=== PATIENT | male | born 1960 | race Hispanic/Latino ===

== ENCOUNTER 2019-01-10 22:13 | Emergency (ER) | payer MEDICARE, OTHER ==
[2019-01-10 23:19] VITALS: BP 149/102
[2019-01-10 23:54] LABS: Basophils % (Auto) 0.6 % (0.0-1.8); Eosinophils # (Auto) 0.1 K/mm3 (0.0-0.4); Eosinophils % (Auto) 1.2 % (0.0-4.3); Lymphocytes # (Auto) 0.9 K/mm3 (1.2-5.4); Lymphocytes % (Auto) 13.6 % (13.4-35.0); Mean Corpuscular HGB Conc 36 % (32-34); Mean Corpuscular Volume 91 fl (84-94); Monocytes # (Auto) 0.9 K/mm3 (0.0-0.8); Monocytes % (Auto) 13.1 % (0.0-7.3); Platelet Count 259 K/mm3 (140-440); Red Blood Count 5.16 M/mm3 (3.65-5.03); Red Cell Distribution Width 14.6 % (13.2-15.2)
[2019-01-11 00:06] LABS: Hemoglobin 16.9 gm/dl (11.8-15.2)
[2019-01-11 00:10] LABS: BUN/Creatinine Ratio 19; Blood Urea Nitrogen 21 mg/dL (9-20); Calcium 9.8 mg/dL (8.4-10.2); Hemolysis Index 23
[2019-01-11] MEDS ORDERED: LIDOCAINE VISCOUS 2% PO ONE (02:05)
[2019-01-11] MEDS ORDERED: BANOPHEN PO ONE (02:05)
--- NOTE | 2019-01-11 02:06 | Emergency Department Report ---
Vomiting/Diarrhea - HPI Chief Complaint: Abdominal Pain Stated Complaint: ABD PAIN NVD WEAKNESS Time Seen by Provider: 01/11/19 01:36 Duration: 1 Day Nausea/Vomiting Severity: None Diarrhea Severity: Moderate Pain Location: Generalized Pain Severity: Moderate Symptoms: Yes Watery Diarrhea, Yes Able to Tolerate Fluids, Yes Recent Unusual Foods, No Bloody diarrhea, No Fever, No Recent Untreated Water, No Recent use of Antibiotics, No Family w/ Similar Symptoms, No Contacts w/ Similar Symptoms, No Rash, No Hematuria, No Recent URI Symptoms Other History: Patient is a 58-year-old male with a history of depression and anxiety controlled with medication who presents to the ED complaining of mild abdominal cramping with diarrhea that started earlier today after lunch. Patient states he had a piece of chicken increase from the hospital meat food. Patient states the diarrhea is watery and very liquidy. Patient's has had about 6-7 episodes of diarrhea since this afternoon. Patient denies fevers/chills/nausea vomiting/chest pains ED Review of Systems ROS: Stated complaint: ABD PAIN NVD WEAKNESS Other details as noted in HPI Comment: All other systems reviewed and negative ED Past Medical Hx - Past Medical History Previous Medical History?: Yes Hx Psychiatric Treatment: Yes (Depression) - Surgical History Past Surgical History?: Yes Additional Surgical History: Neck Surgery - Social History Smoking Status: Current Every Day Smoker Substance Use Type: None - Medications Home Medications: Home Medications Medication Instructions Recorded Confirmed Last Taken Type Loperamide [Imodium] 2 mg PO Q6HR #12 capsule 01/11/19 Unknown Rx Vomiting Diarrhea Exam - Exam General: Vital signs noted. No distress. Alert and acting appropriately. HEENT: Yes Moist Mucous Membranes, No Pharyngeal Erythema, No Pharyngeal Exudates, No Rhinorrhea, No Conjuctival Injection, No Frontal Tenderness, No Maxillary Tenderness Neck: No Adenopathy, No Rigidity Lungs: Yes Clear Lung Sounds, Yes Good Air Exchange, No Wheezes, No Stridor, No Cough, No Nasal Flaring, No Retractions, No Use of Accessory Muscles Heart exam: Regular: Yes, Murmur: No, Tachycardia: No Abdomen: Tenderness: No, Peritoneal Signs: No, Distention: No, Hyperactive Bowel sounds: No Skin exam: Rash: No, Edema: No, Normal turgor: Yes Neurologic: Alert and oriented, no deficits. Musculoskeletal: Unremarkable. ED Course Vital Signs 01/10/19 23:18 Temperature 97.5 F L Pulse Rate 109 H Respiratory 20 Rate Blood Pressure 149/102 O2 Sat by Pulse 94 Oximetry ED Medical Decision Making - Lab Data Result diagrams: 01/10/19 23:35 01/10/19 23:39 Laboratory Last Values WBC 6.7 K/mm3 (4.5-11.0) 01/10/19 23:35 RBC 5.16 M/mm3 (3.65-5.03) H 01/10/19 23:35 Hgb 16.9 gm/dl (11.8-15.2) H 01/10/19 23:35 Hct 47.0 % (35.5-45.6) H 01/10/19 23:35 MCV 91 fl (84-94) 01/10/19 23:35 MCH 33 pg (28-32) H 01/10/19 23:35 MCHC 36 % (32-34) H 01/10/19 23:35 RDW 14.6 % (13.2-15.2) 01/10/19 23:35 Plt Count 259 K/mm3 (140-440) 01/10/19 23:35 Lymph % (Auto) 13.6 % (13.4-35.0) 01/10/19 23:35 Williams % (Auto) 13.1 % (0.0-7.3) H 01/10/19 23:35 Eos % (Auto) 1.2 % (0.0-4.3) 01/10/19 23:35 Baso % (Auto) 0.6 % (0.0-1.8) 01/10/19 23:35 Lymph # 0.9 K/mm3 (1.2-5.4) L 01/10/19 23:35 Williams # 0.9 K/mm3 (0.0-0.8) H 01/10/19 23:35 Eos # 0.1 K/mm3 (0.0-0.4) 01/10/19 23:35 Baso # 0.0 K/mm3 (0.0-0.1) 01/10/19 23:35 Seg Neutrophils % 71.5 % (40.0-70.0) H 01/10/19 23:35 Seg Neutrophils # 4.8 K/mm3 (1.8-7.7) 01/10/19 23:35 Sodium 137 mmol/L (137-145) 01/10/19 23:39 Potassium 4.3 mmol/L (3.6-5.0) 01/10/19 23:39 Chloride 101.5 mmol/L (98-107) 01/10/19 23:39 Carbon Dioxide 22 mmol/L (22-30) 01/10/19 23:39 18 mmol/L 01/10/19 23:39 BUN 21 mg/dL (9-20) H 01/10/19 23:39 1.1 mg/dL (0.8-1.5) 01/10/19 23:39 Estimated GFR > 60 ml/min 01/10/19 23:39 19 % 01/10/19 23:39 Glucose 104 mg/dL (75-100) H 01/10/19 23:39 Calcium 9.8 mg/dL (8.4-10.2) 01/10/19 23:39 - Radiology Data Radiology results: report reviewed, image reviewed FINDINGS: Visualized lower thorax: No significant abnormality. There is discoid atelectasis at the lung bases. Liver: Normal size and attenuation. There are small cysts in the liver. Spleen: Normal size and attenuation. Gallbladder and biliary system: Normal. Pancreas: Normal. Adrenals: Normal. Kidneys: There are no kidney stones or ureteral stones. There is no hydronephrosis.. GI tract: There is no bowel obstruction, colitis or enteritis. The appendix is not identified. . Lymph nodes and mesentery: Normal. Vasculature: Normal.. Bladder: Normal. Reproductive organs: Normal. Peritoneum: There is no ascites or free air, abscess or adenopathy.. Musculoskeletal structures: No significant abnormality. Other: There are bilateral inguinal hernias containing fat only.. IMPRESSION: There are small cysts in the liver. There are no kidney stones or ureteral stones. There is no hydronephrosis.. There is no bowel obstruction, colitis or enteritis. The appendix is not identified. . There is no ascites or free air, abscess or adenopathy.. There are bilateral inguinal hernias containing fat only... This document is electronically signed by Jose Armstrong MD., January 11 2019 03:50:15 AM ET Transcribed By: CO Dictated By: JOSE ARMSTRONG MD Electronically Authenticated By: JOSE ARMSTRONG MD Signed Date/Time: 01/11/19 0352 - Medical Decision Making Is a 58-year old male presents with gastroenteritis with diarrhea CBC, BMP, ordered completed and within normal limits CT scan of the abdomen shows no acute abdomen Discussed findings with patient. Discussed with patient to replenish with Gatorade and vitamin water his electrolytes. This is a stable patient is in no acute distress. Patient sent instructions being given. Critical care attestation.: If time is entered above; I have spent that time in minutes in the direct care of this critically ill patient, excluding procedure time. ED Disposition Clinical Impression: Gastroenteritis Disposition: DC-01 TO HOME OR SELFCARE Is pt being admited?: No Does the pt Need Aspirin: No Condition: Stable Instructions: Traveler's Diarrhea (ED), Gastroenteritis (ED), Food Poisoning (ED) Additional Instructions: Make sure to follow up with the primary care physician as discussed. Take all your medications as you've been prescribed. If you have any worsening symptoms or develop new symptoms please return to ED immediately. Prescriptions: Loperamide [Imodium] 2 mg PO Q6HR #12 capsule Referrals: JAIME RILEY MD [Primary Care Provider] - 3-5 Days Forms: Work/School Release Form(ED) Time of Disposition: 03:14
[2019-01-11] MEDS ORDERED: BENTYL ONE (02:14)
[2019-01-11] MEDS: BENTYL PO ONE ×2 (02:16→02:54)
[2019-01-11] MEDS ORDERED: BENTYL PO ONE (03:00)
--- NOTE | 2019-01-11 03:52 | Cat Scan Report ---
PROCEDURE: CT ABDOMEN PELVIS WO CON TECHNIQUE: Computerized axial tomography of the abdomen and pelvis was performed without intravenous contrast. This study is performed without intravascular contrast material and its sensitivity for ab dominal and pelvic pathology, including neoplasms, inflammation, abscess, free fluid, thrombosis, art erial dissection and infarction, is reduced compared with a contrast enhanced study. CT DOSE LENGTH PRODUCT: mGycm HISTORY: abd pain/diarhea COMPARISONS: None . FINDINGS: Visualized lower thorax: No significant abnormality. There is discoid atelectasis at the lung bases. Liver: Normal size and attenuation. There are small cysts in the liver. Spleen: Normal size and attenuation. Gallbladder and biliary system: Normal. Pancreas: Normal. Adrenals: Normal. Kidneys: There are no kidney stones or ureteral stones. There is no hydronephrosis.. GI tract: There is no bowel obstruction, colitis or enteritis. The appendix is not identified. . Lymph nodes and mesentery: Normal. Vasculature: Normal.. Bladder: Normal. Reproductive organs: Normal. Peritoneum: There is no ascites or free air, abscess or adenopathy.. Musculoskeletal structures: No significant abnormality. Other: There are bilateral inguinal hernias containing fat only.. IMPRESSION: There are small cysts in the liver. There are no kidney stones or ureteral stones. There is no hydronephrosis.. There is no bowel obstruction, colitis or enteritis. The appendix is not identified. . There is no ascites or free air, abscess or adenopathy.. There are bilateral inguinal hernias containing fat only... This document is electronically signed by Brut Wright MD., January 11 2019 03:50:15 AM ET
== END 2019-01-11 03:15 | disposition home or self-care (01) ==
LOC: ED 22:13
DX: K52.9 Noninfective gastroenteritis and colitis, unspecified (principal); F17.200 Nicotine dependence, unspecified, uncomplicated
CPT/HCPCS: 36415; 74176; 80048; 85025; 99284; Q0163

== ENCOUNTER 2019-01-15 10:50 | Emergency (ER) | payer MEDICARE ==
[2019-01-15 10:59] VITALS: BP 116/77
[2019-01-15] MEDS ORDERED: NORCO 10/325 PO ONE (11:33)
[2019-01-15] MEDS ORDERED: ZOFRAN ODT PO ONE (11:33)
--- NOTE | 2019-01-15 11:38 | Emergency Department Report ---
ED General Adult HPI - General Chief complaint: Fall Stated complaint: LT KNEE PAIN Time Seen by Provider: 01/15/19 11:15 Source: patient Mode of arrival: Wheelchair Limitations: No Limitations - History of Present Illness Initial comments: Patient presents to the emergency department with the chief complaint left knee pain since Monday. The patient states that he slipped on a wet floor and has since had left knee pain. Patient has a history of a torn meniscus in the left knee with repair. Patient states it feels exactly the same as when he tore his meniscus in 2010. Patient denies hitting his head or any other injury. Patient also denies loss consciousness. -: Sudden Location: lower extremity Radiation: non-radiation Severity scale (0 -10): 8 Quality: sharp Consistency: constant Improves with: rest Worsens with: movement Associated Symptoms: denies other symptoms Treatments Prior to Arrival: none - Related Data Previous Rx's Medication Instructions Recorded Last Taken Type Loperamide [Imodium] 2 mg PO Q6HR #12 capsule 01/11/19 Unknown Rx Acetaminophen/Codeine [Tylenol 1 tab PO Q6H PRN #15 tab 01/15/19 Unknown Rx /Codeine # 3 tab] Allergies Allergy/AdvReac Type Severity Reaction Status Date / Time ketorolac [From Toradol] Allergy Hives Verified 01/10/19 23:32 ED Review of Systems ROS: Stated complaint: LT KNEE PAIN Other details as noted in HPI Comment: All other systems reviewed and negative Constitutional: denies: chills, fever Eyes: denies: eye pain, eye discharge, vision change ENT: denies: ear pain, throat pain Respiratory: denies: cough, shortness of breath, wheezing Cardiovascular: denies: chest pain, palpitations Endocrine: no symptoms reported Gastrointestinal: denies: abdominal pain, nausea, diarrhea Genitourinary: denies: urgency, dysuria Musculoskeletal: other (left knee pain). denies: back pain, joint swelling, arthralgia Skin: denies: rash, lesions Neurological: denies: headache, weakness, paresthesias Psychiatric: denies: anxiety, depression Hematological/Lymphatic: denies: easy bleeding, easy bruising ED Past Medical Hx - Past Medical History Previous Medical History?: No Hx Psychiatric Treatment: Yes (Depression) - Surgical History Past Surgical History?: Yes Additional Surgical History: Neck Surgery - Social History Smoking Status: Current Every Day Smoker Substance Use Type: None - Medications Home Medications: Home Medications Medication Instructions Recorded Confirmed Last Taken Type Loperamide [Imodium] 2 mg PO Q6HR #12 capsule 01/11/19 Unknown Rx Acetaminophen/Codeine [Tylenol 1 tab PO Q6H PRN #15 tab 01/15/19 Unknown Rx /Codeine # 3 tab] ED Physical Exam - General Limitations: No Limitations General appearance: alert, in no apparent distress - Head Head exam: Present: atraumatic, normocephalic - Eye Eye exam: Present: normal appearance, PERRL, EOMI - ENT ENT exam: Present: mucous membranes moist - Neck Neck exam: Present: normal inspection - Respiratory Respiratory exam: Present: normal lung sounds bilaterally. Absent: respiratory distress - Cardiovascular Cardiovascular Exam: Present: regular rate, normal rhythm. Absent: systolic murmur, diastolic murmur, rubs, gallop - Rectal Rectal exam: Present: deferred - Extremities Exam Extremities exam: Present: other (patient has limited range of motion of the left knee due to pain with tenderness to palpation on the lateral joint line) - Back Exam Back exam: Present: normal inspection - Neurological Exam Neurological exam: Present: alert, oriented X3 - Psychiatric Psychiatric exam: Present: normal affect, normal mood - Skin Skin exam: Present: warm, dry, intact, normal color. Absent: rash ED Course Vital Signs 01/15/19 10:56 Temperature 97.8 F Pulse Rate 103 H Respiratory 18 Rate Blood Pressure 116/77 [Left] O2 Sat by Pulse 94 Oximetry ED Medical Decision Making - Medical Decision Making Discussed results with the patient Critical care attestation.: If time is entered above; I have spent that time in minutes in the direct care of this critically ill patient, excluding procedure time. ED Disposition Clinical Impression: Knee pain Disposition: DC-01 TO HOME OR SELFCARE Is pt being admited?: No Does the pt Need Aspirin: No Condition: Stable Instructions: Knee Pain (ED) Additional Instructions: Return if worse Prescriptions: Acetaminophen/Codeine [Tylenol /Codeine # 3 tab] 1 tab PO Q6H PRN #15 tab PRN Reason: pain Referrals: LE[place] VITA DOUGLAS MD [Primary Care Provider] - 3-5 Days PILAR GRAY MD [Staff Physician] - 3-5 Days Time of Disposition: 13:14
--- NOTE | 2019-01-15 12:13 | XRay Report ---
LEFT KNEE, 3 views: History: Pain. Minimal tibial spine spurring and retropatellar spurring are identified. No evidence for fracture, bone lesion or large joint effusion. Normal bone mineralization. IMPRESSION: Minimal osteoarthritis.
== END 2019-01-15 13:52 | disposition home or self-care (01) ==
LOC: ED 10:50
DX: M25.562 Pain in left knee (principal); F32.9 Major depressive disorder, single episode, unspecified; F17.200 Nicotine dependence, unspecified, uncomplicated; Z79.899 Other long term (current) drug therapy; Z88.6 Allergy status to analgesic agent; W01.0XXA Fall on same level from slipping, tripping and stumbling without subsequent striking against object, initial encounter; Y93.89 Activity, other specified; Y92.89 Other specified places as the place of occurrence of the external cause; Y99.8 Other external cause status
CPT/HCPCS: 99283; Q0162

== ENCOUNTER 2019-01-20 20:19 | Inpatient (IN) | payer MEDICARE, OTHER ==
--- NOTE | 2019-01-20 20:44 | Event Note ---
ED Screening Note ED Screening Note: pt presents with frontal BARAHONA that began 4 days ago states has been having "passing out spells for 7 months" states has not passed out for 4 weeks states "MRI of his brain was ordered but did not have the money to get it done" +dizziness no fall or injury in the last 4 days no numbness, no unilateral weakness no PMHx no daily meds allergy: toradol states he a rash/nausea pt is inpatient at [facility] for SI with overdose attempt no SI currently no HI no hallucinations +smoker no ETOH This initial assessment/diagnostic orders/clinical plan/treatment(s) is/are subject to change based on patients health status, clinical progression and re- assessment by fellow clinical providers in the ED. Further treatment and workup at subsequent clinical providers discretion. Patient/guardian urged not to elope from the ED as their condition may be serious if not clinically assessed and managed. Initial orders include: CT head, labs, EKG, UA, UDS
[2019-01-20 21:23] LABS: Basophils % (Auto) 1.3 % (0.0-1.8); Eosinophils # (Auto) 0.1 K/mm3 (0.0-0.4); Eosinophils % (Auto) 2.7 % (0.0-4.3); Hematocrit 39.7 % (35.5-45.6); Hemoglobin 13.8 gm/dl (11.8-15.2); Lymphocytes # (Auto) 0.8 K/mm3 (1.2-5.4); Lymphocytes % (Auto) 21.7 % (13.4-35.0); Mean Corpuscular HGB Conc 35 % (32-34); Mean Corpuscular Volume 91 fl (84-94); Monocytes # (Auto) 0.3 K/mm3 (0.0-0.8); Monocytes % (Auto) 9.4 % (0.0-7.3); Platelet Count 276 K/mm3 (140-440); Red Blood Count 4.38 M/mm3 (3.65-5.03); Red Cell Distribution Width 14.8 % (13.2-15.2)
--- NOTE | 2019-01-20 21:35 | XRay Report ---
PROCEDURE: XR CHEST ROUTINE 2V TECHNIQUE: PA and lateral chest radiographs were obtained. HISTORY: low O2 sat COMPARISONS: None. FINDINGS: Heart: Normal. Mediastinum/Vessels: Normal. Lungs/Pleural space: Lungs are hyperinflated. There are no confluent infiltrates or mass lesions. Pl eural spaces are clear. Bony thorax: No acute osseous abnormality. IMPRESSION: COPD No acute pulmonary process. This document is electronically signed by Mike Vital MD., January 20 2019 09:33:11 PM ET
[2019-01-20 21:46] LABS: BUN/Creatinine Ratio 15; Blood Urea Nitrogen 15 mg/dL (9-20); Calcium 8.8 mg/dL (8.4-10.2); Hemolysis Index 5
--- NOTE | 2019-01-20 21:47 | Cat Scan Report ---
PROCEDURE: CT HEAD/BRAIN WO CON TECHNIQUE: Computerized tomography of the head was performed without contrast material. CT DOSE LENGTH PRODUCT: 920.5 mGycm HISTORY: BARAHONA, dizziness COMPARISONS: None . FINDINGS: Skull and scalp: Normal . Paranasal sinuses: A polypoid lesion measuring 3 cm x 2 cm is noted in the right maxillary sinus mos t likely representing mucous retention cyst. Mild degree mucosal thickening is noted involving left m axillary and ethmoid sinuses. . Ventricles and subarachnoid spaces: Normal . Cerebrum: No evidence of hemorrhage, acute infarction or mass . Cerebellum and brainstem: No evidence of hemorrhage, acute infarction or mass . Vasculature: Normal . Other: None . ASPECTS: 10 IMPRESSION: No acute intracranial abnormality Chronic sinusitis. This document is electronically signed by Mike Vital MD., January 20 2019 09:45:03 PM ET
[2019-01-20] MEDS ORDERED: DILAUDID IV ONE ×2 (22:04→23:54)
--- NOTE | 2019-01-20 22:05 | Emergency Department Report ---
ED General Adult HPI - General Chief complaint: Headache Stated complaint: HEAD PAIN Time Seen by Provider: 01/20/19 23:41 Source: patient, EMS Mode of arrival: Wheelchair Limitations: No Limitations - History of Present Illness Initial comments: Patient is a 58-year-old male presents emergency with multiple complaints. Patient is complaining of shortness of breath and dyspnea on exertion that started yesterday. Patient is also complaining of nonproductive cough. Patient also complaining of a severe headaches gone on for 3 days. Patient states he feels his brain is swelling in his head is going to explode. Patient states that he had a neck surgery 9 weeks ago for an anterior fusion. Patient denies chest pain. Patient states his pain is a 10 out of 10. Patient states his shortness of breath is worse with exertion and better with rest. Patient states his headache is better with rest and worse with exertion. Patient's complaining of multiple bouts of syncope over the past several months. Patient is also complaining of dizziness. -: Sudden Location: head Severity scale (0 -10): 10 Quality: stabbing Consistency: constant Associated Symptoms: diaphoresis, headaches, shortness of breath, weakness - Related Data Previous Rx's Medication Instructions Recorded Last Taken Type Loperamide [Imodium] 2 mg PO Q6HR #12 capsule 01/11/19 Unknown Rx Acetaminophen/Codeine [Tylenol 1 tab PO Q6H PRN #15 tab 01/15/19 Unknown Rx /Codeine # 3 tab] Allergies Allergy/AdvReac Type Severity Reaction Status Date / Time ketorolac [From Toradol] Allergy Hives Verified 01/10/19 23:32 ED Review of Systems ROS: Stated complaint: HEAD PAIN Other details as noted in HPI Constitutional: denies: chills, fever Eyes: denies: eye pain, eye discharge, vision change ENT: denies: ear pain, throat pain Respiratory: shortness of breath. denies: cough, wheezing Cardiovascular: denies: chest pain, palpitations Endocrine: no symptoms reported Gastrointestinal: denies: abdominal pain, nausea, diarrhea Genitourinary: denies: urgency, dysuria Musculoskeletal: denies: back pain, joint swelling, arthralgia Skin: denies: rash, lesions Neurological: headache, weakness. denies: paresthesias Psychiatric: denies: anxiety, depression Hematological/Lymphatic: denies: easy bleeding, easy bruising ED Past Medical Hx - Past Medical History Previous Medical History?: Yes Hx Psychiatric Treatment: Yes (Depression, Suicidal Attempts) - Surgical History Past Surgical History?: Yes Additional Surgical History: Neck Surgery, Tonsilectomy - Family History Family history: no significant - Social History Smoking Status: Current Every Day Smoker Substance Use Type: None - Medications Home Medications: Home Medications Medication Instructions Recorded Confirmed Last Taken Type Loperamide [Imodium] 2 mg PO Q6HR #12 capsule 01/11/19 Unknown Rx Acetaminophen/Codeine [Tylenol 1 tab PO Q6H PRN #15 tab 01/15/19 Unknown Rx /Codeine # 3 tab] ED Physical Exam - General Limitations: No Limitations General appearance: alert, in no apparent distress - Head Head exam: Present: atraumatic, normocephalic - Eye Eye exam: Present: normal appearance, PERRL Pupils: Present: normal accommodation - ENT ENT exam: Present: mucous membranes moist - Neck Neck exam: Present: normal inspection - Respiratory Respiratory exam: Present: normal lung sounds bilaterally. Absent: respiratory distress - Cardiovascular Cardiovascular Exam: Present: regular rate, normal rhythm. Absent: systolic murmur, diastolic murmur, rubs, gallop - GI/Abdominal GI/Abdominal exam: Present: soft, normal bowel sounds. Absent: distended, tenderness, guarding - Rectal Rectal exam: Present: deferred - Extremities Exam Extremities exam: Present: normal inspection - Back Exam Back exam: Present: normal inspection - Neurological Exam Neurological exam: Present: alert, oriented X3 - Psychiatric Psychiatric exam: Present: normal affect, normal mood - Skin Skin exam: Present: warm, dry, intact, normal color. Absent: rash ED Course Vital Signs 01/20/19 01/20/19 01/20/19 20:44 23:29 23:31 Temperature 97.7 F Pulse Rate 98 H 80 Respiratory 18 16 25 H Rate Blood Pressure 108/46 Blood Pressure 122/68 [Left] O2 Sat by Pulse 92 95 Oximetry - Reevaluation(s) Reevaluation #1: Initial evaluation done. Patient found to be hypoxic. Patient placed on environmental monitoring technician and placed on oxygen. On 3 L the patient is now 95%. Patient's O2 sat was 90% prior to oxygen. Patient given site Medrol for his headache and Dilaudid. 01/20/19 23:50 She is still complaining of shortness of breath and headache. Patient is now wheezing. Patient will be given DuoNeb. Patient's CTA was done 01/21/19 00:04 Discussed all results with patient. Patient will be admitted to the hospitalist service. Patient agrees to plan of care. 01/21/19 00:22 - Consultations Consultation #1: Hospitalist consulted for admission. Hospitalist to admit patient. Hospitalist to assume care patient. 01/21/19 00:22 ED Medical Decision Making - Lab Data Result diagrams: 01/20/19 20:56 01/20/19 20:56 - EKG Data -: EKG Interpreted by [facility] EKG shows normal: sinus rhythm, axis, intervals, QRS complexes, ST-T waves Rate: normal - Radiology Data Radiology results: report reviewed PROCEDURE: CT HEAD/BRAIN WO CON TECHNIQUE: Computerized tomography of the head was performed without contrast material. CT DOSE LENGTH PRODUCT: 920.5 mGycm HISTORY: BARAHONA, dizziness COMPARISONS: None . FINDINGS: Skull and scalp: Normal . Paranasal sinuses: A polypoid lesion measuring 3 cm x 2 cm is noted in the right maxillary sinus most likely representing mucous retention cyst. Mild degree mucosal thickening is noted involving left maxillary and ethmoid sinuses. . Ventricles and subarachnoid spaces: Normal . Cerebrum: No evidence of hemorrhage, acute infarction or mass . Cerebellum and brainstem: No evidence of hemorrhage, acute infarction or mass . Vasculature: Normal . Other: None . ASPECTS: 10 IMPRESSION: No acute intracranial abnormality Chronic sinusitis. PROCEDURE: CT ANGIO CHEST TECHNIQUE: Computerized tomographic angiography of the chest was performed after the IV injection of iodinated nonionic contrast including image processing. The image data was postprocessed using 2-dimensional multiplanar reformatted (MPR) and 3-dimensional (MIP and/or volume rendered) techniques. Automated exposure control, adjustment of mA and/or kV according to patient size, or iterative reconstruction dose optimization techniques were utilized. CT DOSE LENGTH PRODUCT: 831.4 mGycm HISTORY: elevated d-dimer COMPARISONS: None . FINDINGS: Heart and pericardium: Normal. Thoracic aorta: Normal. Pulmonary vasculature: Normal. Lymph nodes: No enlarged thoracic lymph nodes. Trachea: A small intratracheal lesion measuring 1.2 x 0.7 cm is noted most likely representing polyp versus secretion. Lungs: Normal. Pleural space: No effusion, thickening, or pneumothorax. Musculoskeletal structures: No significant abnormality. Upper abdominal structures: There are 2 well-defined cystic lesions in liver larger measuring 1.9 cm and the smaller measuring 1 cm which cannot be further evaluated. Left adrenal demonstrates a hypodense nodule measuring 1.5 cm consistent with a benign adenoma.. IMPRESSION: No evidence of pulmonary embolism. No acute pulmonary process An intratracheal lesion may represent a polyp versus secretion. Endoscopic evaluation may be recommended. Cystic lesions are noted in the liver which appears to be of benign nature. Left adrenal adenoma PROCEDURE: XR CHEST ROUTINE 2V TECHNIQUE: PA and lateral chest radiographs were obtained. HISTORY: low O2 sat COMPARISONS: None. FINDINGS: Heart: Normal. Mediastinum/Vessels: Normal. Lungs/Pleural space: Lungs are hyperinflated. There are no confluent infiltrates or mass lesions. Pleural spaces are clear. Bony thorax: No acute osseous abnormality. IMPRESSION: COPD No acute pulmonary process. - Medical Decision Making Patient is a 58-year-old male that presents emergency room with complaints of shortness of breath, headache, dyspnea on exertion, dizziness, syncope. Patient found to be hypoxic. Patient placed on oxygen. Patient found have an elevated d-dimer and due to shortness of breath and hypoxia, a CTA of the chest was done and is negative for PE. CT the head done for the headache and it was negative. Chest x-ray is negative except for COPD changes. While in the ER patient found to be hypoxic and then wheezing. Patient given DuoNeb's - Differential Diagnosis hypoxia. Shortness of breath. Dizziness. Syncope. headache Critical Care Time: Yes Critical care attestation.: If time is entered above; I have spent that time in minutes in the direct care of this critically ill patient, excluding procedure time. Critical Care Time: 45 minutes ED Disposition Clinical Impression: SOB (shortness of breath), Hypoxia, Dizziness, Wheeze Headache Qualifiers: Headache type: unspecified Headache chronicity pattern: acute headache Intractability: intractable Qualified Code(s): R51 - Headache Syncope Qualifiers: Syncope type: unspecified Qualified Code(s): R55 - Syncope and collapse Disposition: OP ADMIT IP TO THIS HOSP Is pt being admited?: Yes Does the pt Need Aspirin: No Condition: Critical Time of Disposition: 00:22
[2019-01-20] MEDS ORDERED: SOLU-Medrol IV ONE (22:12)
--- NOTE | 2019-01-20 23:57 | Cat Scan Report ---
PROCEDURE: CT ANGIO CHEST TECHNIQUE: Computerized tomographic angiography of the chest was performed after the IV injection of iodinated nonionic contrast including image processing. The image data was postprocessed using 2-di mensional multiplanar reformatted (MPR) and 3-dimensional (MIP and/or volume rendered) techniques. Au tomated exposure control, adjustment of mA and/or kV according to patient size, or iterative reconstr uction dose optimization techniques were utilized. CT DOSE LENGTH PRODUCT: 831.4 mGycm HISTORY: elevated d-dimer COMPARISONS: None . FINDINGS: Heart and pericardium: Normal. Thoracic aorta: Normal. Pulmonary vasculature: Normal. Lymph nodes: No enlarged thoracic lymph nodes. Trachea: A small intratracheal lesion measuring 1.2 x 0.7 cm is noted most likely representing polyp versus secretion. Lungs: Normal. Pleural space: No effusion, thickening, or pneumothorax. Musculoskeletal structures: No significant abnormality. Upper abdominal structures: There are 2 well-defined cystic lesions in liver larger measuring 1.9 cm and the smaller measuring 1 cm which cannot be further evaluated. Left adrenal demonstrates a hypode nse nodule measuring 1.5 cm consistent with a benign adenoma.. IMPRESSION: No evidence of pulmonary embolism. No acute pulmonary process An intratracheal lesion may represent a polyp versus secretion. Endoscopic evaluation may be recommen ded. Cystic lesions are noted in the liver which appears to be of benign nature. Left adrenal adenoma This document is electronically signed by Mike Vital MD., January 20 2019 11:54:19 PM ET
[2019-01-21] MEDS ORDERED: DUONEB *Not for PRN Use IH ONE (00:03)
[2019-01-21] MEDS ORDERED: ZOFRAN IV PRN (00:33)
[2019-01-21] MEDS ORDERED: SODIUM CHLORIDE FLUSH SYRINGE 10 ML IV PRN (00:33)
[2019-01-21] MEDS ORDERED: TYLENOL PO PRN (00:33)
[2019-01-21] MEDS ORDERED: PROVENTIL IH PRN (00:33)
--- NOTE | 2019-01-21 00:42 | History and Physical Report ---
<LUCIE GUAJARDO - Last Filed: 01/21/19 01:25> History of Present Illness Date of examination: 01/21/19 Date of admission: 01/21/2019 Chief complaint: Productive cough, shortness of breath, headache History of present illness: 58-year-old male with history of depression and suicidal attempts who is a resident at [place] that presents to [facility] ED with complaints of productive cough, SOB, and headache. Pt states that he was bitten by an "unknown" insect 4 days ago and has had an headache ever since. He describes his headache as "feeling like my brain is swelling in his head is going to explode". The headache is aggravated with coughing. He complains of shortness of breath, which is worst with exertion. Additionally pt complains of cough for the past several months. Initially his cough was non-productive but has no become productive with thick brown colored sputum. Patient states that he had a neck surgery 9 weeks ago for an anterior fusion. Pt was recently on 1012 at [place]. He recently lost his and grandchildren. Denies: Diaphoresis, nausea, vomiting, diarrhea, constipation, fever, hemoptysis, or SI/HI Past History Past Medical History: COPD, other (depression, suicidal attempts ) Past Surgical History: tonsillectomy, Other (neck fusion sx 9 weeks ago) Social history: smoking (current heavy smoker), other (1012 from [place]) Family history: no significant family history Medications and Allergies Allergies Allergy/AdvReac Type Severity Reaction Status Date / Time ketorolac [From Toradol] Allergy Hives Verified 01/10/19 23:32 shellfish Allergy Unknown Uncoded 01/21/19 16:34 Home Medications Medication Instructions Recorded Confirmed Last Taken Type ALBUTEROL Inhaler (OR & NICU) 2 puff IH QID PRN 30 Days #1 vial 01/24/19 Unknown Rx [ProAir HFA Inhaler] Budesonide/Formoterol Fumarate 10.2 gm IH BID 30 Days #1 vial 01/24/19 Unknown Rx [Symbicort 80-4.5 Mcg Inhaler] Butalb/Acetamin/Caff 50-325-40 1 tab PO Q4H PRN #7 tablet 01/24/19 Unknown Rx [Fioricet 50-325-40] Prednisone [predniSONE 5 mg (6-Day 5 mg PO .TAPER #1 tab.ds.pk 01/24/19 Unknown Rx Pack, 21 Tabs)] Sertraline [Zoloft] 50 mg PO QDAY #7 tablet 01/24/19 Unknown Rx traZODone [Desyrel] 50 mg PO QHS PRN #7 tablet 01/24/19 Unknown Rx Active Meds: Active Medications Acetaminophen (Tylenol) 650 mg PO Q4H PRN PRN Reason: Pain MILD(1-3)/Fever >100.5/BARAHONA Albuterol (Proventil) 2.5 mg IH Q3HRT PRN PRN Reason: Shortness Of Breath Albuterol/Ipratropium (Duoneb *Not For Prn Use*) 1 ampul IH Q6HRT [facility] Budesonide (Pulmicort) 0.5 mg IH Q12HRT [facility] Docusate Sodium (Colace) 100 mg PO BID [facility] Enoxaparin Sodium (Lovenox) 40 mg SUB-Q QDAY [facility] Ondansetron HCl (Zofran) 4 mg IV Q8H PRN PRN Reason: Nausea And Vomiting Oxycodone/Acetaminophen (Percocet 5/325) 1 tab PO Q6H PRN PRN Reason: Pain, Moderate (4-6) Sodium Chloride (Sodium Chloride Flush Syringe 10 Ml) 10 ml IV BID FAVIO Sodium Chloride (Sodium Chloride Flush Syringe 10 Ml) 10 ml IV PRN PRN PRN Reason: LINE FLUSH Review of Systems All systems: negative (reviewed and no additional remarkable complaints except as noted) Cardiovascular: shortness of breath Respiratory: cough with sputum (sick brown colored sputum), shortness of breath Neurological: weakness, headaches Exam - Physical Exam Narrative exam: Physical exam General appearance: Present: No acute distress, well-developed, adult male, alert and oriented 3 - EENT Eyes: Present: PERRL, EOM intact ENT: hearing intact, normal dentition - Neck Neck: Present: supple, normal ROM - Respiratory Respiratory effort: Non-labored Respiratory: bilateral: Faint scattered wheezing - Cardiovascular Heart rate: 85 (bpm) Rhythm: Sinus rhythm Heart Sounds: Present: S1 & S2. Absent: rub, click - Extremities Extremities: no ischemia, pulses intact, - Peripheral Assessment Peripheral Pulses: within normal limits - Abdominal General gastrointestinal: soft, non-tender, normal bowel sounds - Integumentary Integumentary: Present: warm, dry - Musculoskeletal Musculoskeletal: generalized weakness -Neurological Neurological: CN II-XII grossly intact - Psychiatric Psychiatric: cooperative - Constitutional Vitals: Temp Pulse Resp BP Pulse Ox 97.7 F 80 25 H 108/46 95 01/20/19 20:44 01/20/19 23:31 01/20/19 23:31 01/20/19 23:31 01/20/19 23:31 Results - Labs CBC & Chem 7: 01/20/19 20:56 01/20/19 20:56 Labs: Laboratory Last Values WBC 3.5 K/mm3 (4.5-11.0) L 01/20/19 20:56 RBC 4.38 M/mm3 (3.65-5.03) 01/20/19 20:56 Hgb 13.8 gm/dl (11.8-15.2) 01/20/19 20:56 Hct 39.7 % (35.5-45.6) 01/20/19 20:56 MCV 91 fl (84-94) 01/20/19 20:56 MCH 32 pg (28-32) 01/20/19 20:56 MCHC 35 % (32-34) H 01/20/19 20:56 RDW 14.8 % (13.2-15.2) 01/20/19 20:56 Plt Count 276 K/mm3 (140-440) 01/20/19 20:56 Lymph % (Auto) 21.7 % (13.4-35.0) 01/20/19 20:56 Harmon % (Auto) 9.4 % (0.0-7.3) H 01/20/19 20:56 Eos % (Auto) 2.7 % (0.0-4.3) 01/20/19 20:56 Baso % (Auto) 1.3 % (0.0-1.8) 01/20/19 20:56 Lymph # 0.8 K/mm3 (1.2-5.4) L 01/20/19 20:56 Harmon # 0.3 K/mm3 (0.0-0.8) 01/20/19 20:56 Eos # 0.1 K/mm3 (0.0-0.4) 01/20/19 20:56 Baso # 0.0 K/mm3 (0.0-0.1) 01/20/19 20:56 Seg Neutrophils % 64.9 % (40.0-70.0) 01/20/19 20:56 Seg Neutrophils # 2.3 K/mm3 (1.8-7.7) 01/20/19 20:56 ESR 30 mm/Hr (0-20) 01/20/19 20:56 935.67 ng/mlDDU (0-234) H 01/20/19 20:56 Sodium 137 mmol/L (137-145) 01/20/19 20:56 Potassium 4.6 mmol/L (3.6-5.0) 01/20/19 20:56 Chloride 99.5 mmol/L (98-107) 01/20/19 20:56 Carbon Dioxide 28 mmol/L (22-30) 01/20/19 20:56 14 mmol/L 01/20/19 20:56 BUN 15 mg/dL (9-20) 01/20/19 20:56 1.0 mg/dL (0.8-1.5) 01/20/19 20:56 Estimated GFR > 60 ml/min 01/20/19 20:56 15 % 01/20/19 20:56 Glucose 130 mg/dL (75-100) H 01/20/19 20:56 Calcium 8.8 mg/dL (8.4-10.2) 01/20/19 20:56 Phosphorus 4.30 mg/dL (2.5-4.5) 01/20/19 20:56 Magnesium 2.20 mg/dL (1.7-2.3) 01/20/19 20:56 < 0.010 ng/mL (0.00-0.029) 01/21/19 00:22 - Imaging and Cardiology EKG: image reviewed (sinus rhythm, 85 bpm) Chest x-ray: report reviewed (IMPRESSION: COPD . no acute cardiopulmonary conditions), image reviewed Imaging and Cardiology: CTA Chest: FINDINGS: Heart and pericardium: Normal. Thoracic aorta: Normal. Pulmonary vasculature: Normal. Lymph nodes: No enlarged thoracic lymph nodes. Trachea: A small intratracheal lesion measuring 1.2 x 0.7 cm is noted most likely representing polyp versus secretion. Lungs: Normal. Pleural space: No effusion, thickening, or pneumothorax. Musculoskeletal structures: No significant abnormality. Upper abdominal structures: There are 2 well-defined cystic lesions in liver larger measuring 1.9 cm and the smaller measuring 1 cm which cannot be further evaluated. Left adrenal demonstrates a hypodense nodule measuring 1.5 cm consistent with a benign adenoma.. IMPRESSION: No evidence of pulmonary embolism. No acute pulmonary process An intratracheal lesion may represent a polyp versus secretion. Endoscopic evaluation may be recommended. Cystic lesions are noted in the liver which appears to be of benign nature. Left adrenal adenoma CT Head: FINDINGS: Skull and scalp: Normal . Paranasal sinuses: A polypoid lesion measuring 3 cm x 2 cm is noted in the right maxillary sinus most likely representing mucous retention cyst. Mild degree mucosal thickening is noted involving left maxillary and ethmoid sinuses. . Ventricles and subarachnoid spaces: Normal . Cerebrum: No evidence of hemorrhage, acute infarction or mass . Cerebellum and brainstem: No evidence of hemorrhage, acute infarction or mass . Vasculature: Normal . Other: None . ASPECTS: 10 IMPRESSION: No acute intracranial abnormality Chronic sinusitis. Assessment and Plan Assessment and plan: 58-year-old male with history of depression and suicidal attempts who is a resident at [place] that presents to [facility] ED with complaints of productive cough, SOB, and headache. D dimer elevated at 935.67, CT angiogram chest negative for PE. CTH did not show any evidence of hemorrhage, acute infarction or mass. On auscultation scattered wheezing throughout. He had a saturation of 90% on room air. He was placed on 3 L nasal cannula with improvement in saturation to 95%. Bronchitis COPD- likely Elevated d-dimer Acute Headache Hypertension Depression Suicidal attempts 1013 Tobacco abuse Plan: Continue supportive care Scheduled DuoNebs and Pulmicort, albuterol when necessary Mucinex Solu-Medrol 40 mg every 8 hours Levaquin 500 milligrams every 24 hours Monitor oxygen saturation Continue supplemental oxygen and wean as tolerated Patient denies history of hypertension, elevation in BP likely due to headache. 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 Mental health consult pending Counseled for smoking cessation, refused nicotine patch DVT PPX on Lovenox Advance Directives: No VTE prophylaxis?: Chemical Plan of care discussed with patient/family: Yes <CLYDE BENJAMIN - Last Filed: 01/24/19 22:01> History of Present Illness Date of admission: 01/21/19 00:45 Medications and Allergies Active Meds: Active Medications Acetaminophen (Tylenol) 650 mg PO Q4H PRN PRN Reason: Pain MILD(1-3)/Fever >100.5/BARAHONA Albuterol (Proventil) 2.5 mg IH Q3HRT PRN PRN Reason: Shortness Of Breath Albuterol/Ipratropium (Duoneb *Not For Prn Use*) 1 ampul IH Q6HRT [facility] Last Admin: 01/21/19 02:38 Dose: 1 ampul Documented by: Budesonide (Pulmicort) 0.5 mg IH Q12HRT [facility] Docusate Sodium (Colace) 100 mg PO BID [facility]AVIO Enoxaparin Sodium (Lovenox) 40 mg SUB-Q QDAY [facility] Guaifenesin (Mucinex Er) 600 mg PO BID [facility] Hydralazine HCl (Apresoline) 10 mg IV Q4HR PRN PRN Reason: Blood Pressure Levofloxacin/Dextrose (Levaquin 500mg/100ml) 500 mg in 100 mls @ 100 mls/hr IV Q24HR [facility]; Protocol Methylprednisolone Sodium Succinate (Solu-Medrol) 40 mg IV Q8HR [facility] Last Admin: 01/21/19 06:28 Dose: 40 mg Documented by: Ondansetron HCl (Zofran) 4 mg IV Q8H PRN PRN Reason: Nausea And Vomiting Oxycodone/Acetaminophen (Percocet 5/325) 1 tab PO Q6H PRN PRN Reason: Pain, Moderate (4-6) Last Admin: 01/21/19 06:32 Dose: 1 tab Documented by: Sodium Chloride (Sodium Chloride Flush Syringe 10 Ml) 10 ml IV BID [facility]IO Sodium Chloride (Sodium Chloride Flush Syringe 10 Ml) 10 ml IV PRN PRN PRN Reason: LINE FLUSH Exam - Constitutional Vitals: Temp Pulse Resp BP Pulse Ox 97.5 F L 91 H 18 129/67 92 01/21/19 05:47 01/21/19 05:47 01/21/19 06:32 01/21/19 05:47 01/21/19 05:47 Results - Labs CBC & Chem 7: 01/22/19 08:12 01/22/19 08:12 Labs: Laboratory Last Values WBC 3.5 K/mm3 (4.5-11.0) L 01/20/19 20:56 RBC 4.38 M/mm3 (3.65-5.03) 01/20/19 20:56 Hgb 13.8 gm/dl (11.8-15.2) 01/20/19 20:56 Hct 39.7 % (35.5-45.6) 01/20/19 20:56 MCV 91 fl (84-94) 01/20/19 20:56 MCH 32 pg (28-32) 01/20/19 20:56 MCHC 35 % (32-34) H 01/20/19 20:56 RDW 14.8 % (13.2-15.2) 01/20/19 20:56 Plt Count 276 K/mm3 (140-440) 01/20/19 20:56 Lymph % (Auto) 21.7 % (13.4-35.0) 01/20/19 20:56 Harmon % (Auto) 9.4 % (0.0-7.3) H 01/20/19 20:56 Eos % (Auto) 2.7 % (0.0-4.3) 01/20/19 20:56 Baso % (Auto) 1.3 % (0.0-1.8) 01/20/19 20:56 Lymph # 0.8 K/mm3 (1.2-5.4) L 01/20/19 20:56 Harmon # 0.3 K/mm3 (0.0-0.8) 01/20/19 20:56 Eos # 0.1 K/mm3 (0.0-0.4) 01/20/19 20:56 Baso # 0.0 K/mm3 (0.0-0.1) 01/20/19 20:56 Seg Neutrophils % 64.9 % (40.0-70.0) 01/20/19 20:56 Seg Neutrophils # 2.3 K/mm3 (1.8-7.7) 01/20/19 20:56 ESR 30 mm/Hr (0-20) 01/20/19 20:56 935.67 ng/mlDDU (0-234) H 01/20/19 20:56 Sodium 137 mmol/L (137-145) 01/20/19 20:56 Potassium 4.6 mmol/L (3.6-5.0) 01/20/19 20:56 Chloride 99.5 mmol/L (98-107) 01/20/19 20:56 Carbon Dioxide 28 mmol/L (22-30) 01/20/19 20:56 14 mmol/L 01/20/19 20:56 BUN 15 mg/dL (9-20) 01/20/19 20:56 1.0 mg/dL (0.8-1.5) 01/20/19 20:56 Estimated GFR > 60 ml/min 01/20/19 20:56 15 % 01/20/19 20:56 Glucose 130 mg/dL (75-100) H 01/20/19 20:56 Calcium 8.8 mg/dL (8.4-10.2) 01/20/19 20:56 Phosphorus 4.30 mg/dL (2.5-4.5) 01/20/19 20:56 Magnesium 2.20 mg/dL (1.7-2.3) 01/20/19 20:56 < 0.010 ng/mL (0.00-0.029) 01/21/19 00:22 Assessment and Plan Assessment and plan: Patient seen and 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 58 year man old admitted foracute bronchitis with hypoxia. Agree with plan as stated above except d/c 1013, partient has been off 1013 for more than 4 days at [place], currently denies homicidal or suicidal ideation
[2019-01-21] MEDS ORDERED: APRESOLINE IV PRN (01:38)
[2019-01-21] MEDS: DUONEB *Not for PRN Use IH SCH ×4 (02:38→20:52)
[2019-01-21] MEDS: SOLU-Medrol IV SCH ×3 (06:28→22:16)
[2019-01-21] MEDS: PERCOCET 5/325 PO PRN ×3 (06:32→22:17)
[2019-01-21 07:22] LABS: Amphetamine Screen,Urine PRESUMPTIVE NEGATIVE; Benzodiazepines Screen,Urine PRESUMPTIVE NEGATIVE; Cocaine Screen,Urine PRESUMPTIVE NEGATIVE; Methadone Screen,Urine PRESUMPTIVE NEGATIVE; Opiate Screen,Urine PRESUMPTIVE NEGATIVE
[2019-01-21 07:52] LABS: Cannabinoid Screen,Urine PRESUMPTIVE NEGATIVE
[2019-01-21 08:26] LABS: Bilirubin,Urine NEG (Negative); Blood,Urine SM (Negative); Color,Urine Yellow (Yellow); Protein,Urine <15 mg/dL mg/dL (Negative); Urobilinogen,Urine < 2.0 mg/dL (<2.0)
[2019-01-21] MEDS: PULMICORT IH SCH ×2 (09:07→20:53)
[2019-01-21] MEDS: COLACE PO SCH ×2 (09:38→22:16)
[2019-01-21] MEDS: LEVAQUIN 500MG/100ML 500 MG/100 ML BAG IV SCH (09:38)
[2019-01-21] MEDS: MUCINEX ER PO SCH ×2 (09:38→22:16)
[2019-01-21] MEDS: LOVENOX SUB-Q SCH (09:39)
[2019-01-21] MEDS: SODIUM CHLORIDE FLUSH SYRINGE 10 ML IV SCH ×2 (09:39→22:19)
[2019-01-21] MEDS ORDERED: DILAUDID IV ONE (18:00)
--- NOTE | 2019-01-21 19:24 | Consultation ---
History of Present Illness Consult date: 01/21/19 Reason for consult: dyspnea, cough, COPD, other (Headache.) History of present illness: PULMONARY AND CRITICAL CARE CONSULTATION. DR.KAMALA GUAJARDO THANK YOU FOR ASKING US TO PARTICIPATE IN THE CARE OF THIS PATIENT. 58-year-old male with history of depression and suicidal attempts who is a resident at [place] that presents to [facility] ED with complaints of productive cough, SOB, and headache. Pt states that he was bitten by an "unknown" insect 4 days ago and has had an headache ever since. He describes his headache as "feeling like my brain is swelling in his head is going to explode". The headache is aggravated with coughing. He complains of shortness of breath, which is worst with exertion. Additionally pt complains of cough for the past several months. Initially his cough was non-productive but has no become productive with thick brown colored sputum. Patient states that he had a neck surgery 9 weeks ago for an anterior fusion. Pt was recently on 1012 at [place]. He recently lost his and grandchildren. Denies: Diaphoresis, nausea, vomiting, diarrhea, constipation, fever, hemoptysis. Patient complaining non productive cough and shortness of breath. Patient has heavy history of smoking 1 to 2 packs a day for 46 years. Says stopped smoking recently. Patient used to smoke Marijuana. Denies alcohol abuse. 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 Patient presently resting on 2 1/2 litres O2. O2 saturation 92%. Chest xray reported COPD. No acute pulmonary process. Past History Past Medical History: COPD, other (depression, suicidal attempts ) Past Surgical History: tonsillectomy, Other (neck fusion sx 9 weeks ago) Social history: smoking (current heavy smoker), other (1012 from [place]) Family history: no significant family history Medications and Allergies Allergies Allergy/AdvReac Type Severity Reaction Status Date / Time ketorolac [From Toradol] Allergy Hives Verified 01/10/19 23:32 shellfish Allergy Unknown Uncoded 01/21/19 16:34 Home Medications Medication Instructions Recorded Confirmed Last Taken Type Loperamide [Imodium] 2 mg PO Q6HR #12 capsule 01/11/19 01/21/19 Unknown Rx Acetaminophen/Codeine [Tylenol 1 tab PO Q6H PRN #15 tab 01/15/19 01/21/19 Unknown Rx /Codeine # 3 tab] Active Meds: Active Medications Acetaminophen (Tylenol) 650 mg PO Q4H PRN PRN Reason: Pain MILD(1-3)/Fever >100.5/[place] Albuterol (Proventil) 2.5 mg IH Q3HRT PRN PRN Reason: Shortness Of Breath Albuterol/Ipratropium (Duoneb *Not For Prn Use*) 1 ampul IH Q6HRT [facility] Last Admin: 01/21/19 13:47 Dose: 1 ampul Documented by: Budesonide (Pulmicort) 0.5 mg IH Q12HRT [facility] Last Admin: 01/21/19 09:07 Dose: 0.5 mg Documented by: Docusate Sodium (Colace) 100 mg PO BID [facility] Last Admin: 01/21/19 09:38 Dose: 100 mg Documented by: Enoxaparin Sodium (Lovenox) 40 mg SUB-Q QDAY [facility] Last Admin: 01/21/19 09:39 Dose: 40 mg Documented by: Guaifenesin (Mucinex Er) 600 mg PO BID [facility] Last Admin: 01/21/19 09:38 Dose: 600 mg Documented by: Hydralazine HCl (Apresoline) 10 mg IV Q4HR PRN PRN Reason: Blood Pressure Levofloxacin/Dextrose (Levaquin 500mg/100ml) 500 mg in 100 mls @ 100 mls/hr IV Q24HR [facility]; Protocol Last Admin: 01/21/19 09:38 Dose: 100 mls/hr Documented by: Methylprednisolone Sodium Succinate (Solu-Medrol) 40 mg IV Q8HR [facility] Last Admin: 01/21/19 14:06 Dose: 40 mg Documented by: Ondansetron HCl (Zofran) 4 mg IV Q8H PRN PRN Reason: Nausea And Vomiting Oxycodone/Acetaminophen (Percocet 5/325) 1 tab PO Q6H PRN PRN Reason: Pain, Moderate (4-6) Last Admin: 01/21/19 14:06 Dose: 1 tab Documented by: Sodium Chloride (Sodium Chloride Flush Syringe 10 Ml) 10 ml IV BID [facility] Last Admin: 01/21/19 09:39 Dose: 10 ml Documented by: Sodium Chloride (Sodium Chloride Flush Syringe 10 Ml) 10 ml IV PRN PRN PRN Reason: LINE FLUSH Review of Systems All systems: negative Physical Examination Vital signs: Vital Signs Temp Pulse Resp BP Pulse Ox 97.7 F 98 H 18 122/68 92 01/20/19 20:44 01/20/19 20:44 01/20/19 20:44 01/20/19 20:44 01/20/19 20:44 General appearance: no acute distress, alert Eyes: non-icteric ENT: oropharynx moist Neck: supple, no JVD Ascultation: Bilateral: diminished breath sounds, other (Prolonged expiratory phase.) Cardiovascular: regular rate and rhythm Gastrointestinal: normoactive bowel sounds, soft, non-tender Integumentary: normal Extremities: no cyanosis, no edema Musculoskeletal: no deformities Gait: other (Patient resting in bed.) non-focal exam, pupils equal and round, CN II-XII normal depressed Results - Laboratory Findings CBC and BMP: 01/20/19 20:56 01/20/19 20:56 PT/INR, D-dimer 935.67 ng/mlDDU (0-234) H 01/20/19 20:56 Abnormal lab findings: Abnormal Labs 01/20/19 01/20/19 01/20/19 20:56 20:56 20:56 WBC 3.5 L MCHC 35 H [place] % (Auto) 9.4 H Lymph # 0.8 L D-Dimer 935.67 H Glucose 130 H - Diagnostic Findings Chest x-ray: report reviewed (COPD, No acute pulmonary process.), image reviewed CT scan - chest: report reviewed, image reviewed Additional studies: Angio CT of chest done on 01/20/19 FINDINGS: Heart and pericardium: Normal. Thoracic aorta: Normal. Pulmonary vasculature: Normal. Lymph nodes: No enlarged thoracic lymph nodes. Trachea: A small intratracheal lesion measuring 1.2 x 0.7 cm is noted most likely representing polyp versus secretion. Lungs: Normal. Pleural space: No effusion, thickening, or pneumothorax. Musculoskeletal structures: No significant abnormality. Upper abdominal structures: There are 2 well-defined cystic lesions in liver larger measuring 1.9 cm and the smaller measuring 1 cm which cannot be further evaluated. Left adrenal demonstrates a hypodense nodule measuring 1.5 cm consistent with a benign adenoma.. IMPRESSION: No evidence of pulmonary embolism. No acute pulmonary process An intratracheal lesion may represent a polyp versus secretion. Endoscopic evaluation may be recommended. Cystic lesions are noted in the liver which appears to be of benign nature. Left adrenal adenoma Assessment and Plan 8-year-old male with history of depression and suicidal attempts who is a resident at [place] that presents to [facility] ED with complaints of productive cough, SOB, and headache. Pt states that he was bitten by an "unknown" insect 4 days ago and has had an headache ever since. He describes his headache as "fee ling like my brain is swelling in his head is going to explode". The headache is aggravated with coughing. He complains of shortness of breath, which is worst with exertion. Additionally pt complains of cough for the past several months. Initially his cough was non-productive but has no become productive with thick brown colored sputum. Patient states that he had a neck surgery 9 weeks ago for an anterior fusion. Pt was recently on 1012 at [place]. He recently lost his and grandchildren. Denies: Diaphoresis, nausea, vomiting, diarrhea, constipation, fever, hemoptysis. Patient complaining non productive cough and shortness of breath. Patient has heavy history of smoking 1 to 2 packs a day for 46 years. Says stopped smoking recently. Patient used to smoke Marijuana. Denies alcohol abuse. 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 Patient presently resting on 2 1/2 litres O2. O2 saturation 92%. Chest xray reported COPD. No acute pulmonary process - Patient Problems (1) SOB (shortness of breath) Current Visit: Yes Status: Acute Plan to address problem: O2 3 litres via nasal canula. Albuterol/atrovent aerosol treatments q 6 hours. Continue I/V solumedrol Continue Levaquin. Continue S/C Lovenox. Recommend GI prophylaxis. (2) COPD (chronic obstructive pulmonary disease) Current Visit: Yes Status: Acute Plan to address problem: Possible COPD with heavy history of smoking. O2 3 litres via nasal canula. Albuterol/atrovent aerosol treatments q 6 hours. Continue I/V solumedrol Continue Levaquin. Continue S/C Lovenox. Recommend GI prophylaxis. PFTs as out patient. (3) Headache Current Visit: Yes Status: Acute Qualifiers: Headache type: unspecified Headache chronicity pattern: acute headache Intractability: intractable Qualified Code(s): R51 - Headache Plan to address problem: Management as per primary care. Patient is on Percocet. (4) Hypoxia Current Visit: Yes Status: Acute Plan to address problem: O2 supplementation 3 litres. (5) Multiple tracheobronchial mucus plugs Current Visit: Yes Status: Acute Plan to address problem: Could be mucus plug described in trachea. May consider bronchoscopy if that not clear.
[2019-01-22] MEDS ORDERED: BENADRYL PO PRN ×2 (01:25→14:13)
[2019-01-22] MEDS: DUONEB *Not for PRN Use IH SCH ×4 (02:28→20:23)
[2019-01-22] MEDS ORDERED: XANAX PO STA (03:17)
[2019-01-22] MEDS: SOLU-Medrol IV SCH ×2 (06:12→15:10)
[2019-01-22] MEDS: PERCOCET 5/325 PO PRN ×2 (06:21→13:35)
[2019-01-22] MEDS: PULMICORT IH SCH ×2 (09:34→20:23)
[2019-01-22 10:01] LABS: Hemoglobin 13.1 gm/dl (11.8-15.2); Mean Corpuscular HGB Conc 34 % (32-34); Mean Corpuscular Volume 91 fl (84-94); Platelet Count 345 K/mm3 (140-440); Red Blood Count 4.28 M/mm3 (3.65-5.03); Red Cell Distribution Width 14.6 % (13.2-15.2)
[2019-01-22] MEDS: COLACE PO SCH (10:24)
[2019-01-22] MEDS: MUCINEX ER PO SCH (10:25)
[2019-01-22] MEDS: LOVENOX SUB-Q SCH (10:25)
[2019-01-22] MEDS: LEVAQUIN 500MG/100ML 500 MG/100 ML BAG IV SCH (10:26)
[2019-01-22 10:54] LABS: BUN/Creatinine Ratio 20; Blood Urea Nitrogen 16 mg/dL (9-20); Calcium 9.3 mg/dL (8.4-10.2); Hemolysis Index 10
[2019-01-22 11:25] LABS: Basophils % (Manual) 0 % (0.0-1.8); Eosinophils % (Manual) 0 % (0.0-4.3); Total Cells Counted 100
[2019-01-22 11:26] LABS: Platelet Estimate Consistent w Auto; RBC Morphology Normal
--- NOTE | 2019-01-22 14:12 | Progress Note ---
Assessment and Plan Patient awake. Patient supposed to be on 2L O2. He is not using his O2. O2 Sat 92%. Still complaining some shortness of breath. Recommend to use O2 all the time. - Patient Problems (1) SOB (shortness of breath) Current Visit: Yes Status: Acute Plan to address problem: O2 2 litres via nasal canula. Albuterol/atrovent aerosol treatments q 6 hours. Continue I/V solumedrol Continue Levaquin. Continue S/C Lovenox. Recommend GI prophylaxis. (2) COPD (chronic obstructive pulmonary disease) Current Visit: Yes Status: Acute Plan to address problem: Possible COPD with heavy history of smoking. O2 2 litres via nasal canula. Albuterol/atrovent aerosol treatments q 6 hours. Continue I/V solumedrol Continue Levaquin. Continue S/C Lovenox. Recommend GI prophylaxis. PFTs as out patient. (3) Headache Current Visit: Yes Status: Acute Qualifiers: Headache type: unspecified Headache chronicity pattern: acute headache Intractability: intractable Qualified Code(s): R51 - Headache Plan to address problem: Management as per primary care. Patient is on Percocet. (4) Hypoxia Current Visit: Yes Status: Acute Plan to address problem: O2 supplementation 2 litres. (5) Multiple tracheobronchial mucus plugs Current Visit: Yes Status: Acute Plan to address problem: Could be mucus plug described in trachea. May consider bronchoscopy if that not clear. Repeating Chest X-Ray PA and Lateral. Subjective Date of service: 01/22/19 Interval history: Patient awake. Patient supposed to be on 2L O2. He is not using his O2. O2 Sat 92%. Still complaining some shortness of breath. Recommend to use O2 all the time. Objective Vital Signs - 12hr 01/22/19 01/22/19 01/22/19 02:30 02:46 06:21 Temperature Pulse Rate Pulse Rate [ 88 93 H Posterior] Pulse Rate [ Throughout] Respiratory 17 Rate Respiratory 18 18 Rate [Posterior ] Respiratory Rate [ Throughout] Blood Pressure O2 Sat by Pulse Oximetry 01/22/19 01/22/19 01/22/19 06:37 08:00 09:37 Temperature 97.3 F L Pulse Rate 94 H Pulse Rate [ 89 Posterior] Pulse Rate [ 93 H Throughout] Respiratory 20 Rate Respiratory 18 Rate [Posterior ] Respiratory 18 Rate [ Throughout] Blood Pressure 125/60 O2 Sat by Pulse 95 96 Oximetry 01/22/19 01/22/19 01/22/19 10:00 12:12 13:37 Temperature 97.7 F Pulse Rate 94 H Pulse Rate [ 96 H Posterior] Pulse Rate [ 100 H Throughout] Respiratory 20 Rate Respiratory 18 Rate [Posterior ] Respiratory 18 Rate [ Throughout] Blood Pressure 114/60 O2 Sat by Pulse 93 92 Oximetry Constitutional: no acute distress, alert Eyes: non-icteric ENT: oropharynx moist Neck: supple, no JVD Ascultation: Bilateral: diminished breath sounds, other (Prolonged expiratory phase.) Cardiovascular: regular rate and rhythm Gastrointestinal: normoactive bowel sounds, soft, non-tender Integumentary: normal Extremities: no cyanosis, no edema Neurologic: non-focal exam, pupils equal and round, CN II-XII normal Psychiatric: depressed CBC and BMP: 01/22/19 08:12 01/22/19 08:12 ABG, PT/INR, D-dimer: PT/INR, D-dimer 935.67 ng/mlDDU (0-234) H 01/20/19 20:56 Abnormal lab findings: Abnormal Labs 01/20/19 01/20/19 01/20/19 20:56 20:56 20:56 WBC 3.5 L MCHC 35 H [place] % (Auto) 9.4 H Lymph # 0.8 L Seg Neuts % (Manual) Lymphocytes % (Manual) Seg Neutrophils # Man Lymphocytes # (Manual) D-Dimer 935.67 H Glucose 130 H 01/22/19 01/22/19 08:12 08:12 WBC MCHC [place] % (Auto) Lymph # Seg Neuts % (Manual) 93.0 H Lymphocytes % (Manual) 2.0 L Seg Neutrophils # Man 8.4 H Lymphocytes # (Manual) 0.2 L D-Dimer Glucose 168 H
--- NOTE | 2019-01-22 14:13 | Progress Note ---
Assessment and Plan Acute hypoxic respiratory failure - Due to COPD exacerbation COPD-with acute exacerbation Acute Bronchitis Acute Headache, likely tension Hypertension, stable Depression with Suicidal attempts, on 1013 Tobacco abuse Plan: Continue supportive care cont Scheduled DuoNebs and Pulmicort, albuterol when necessary, Mucinex Solu-Medrol 40 mg every 8 hours, thomas as clinically symptom improves Levaquin 500 milligrams every 24 hours Monitor oxygen saturation and Continue supplemental oxygen and wean as tolerated IV hydralazine when necessary to keep SBP <160 May benefit from outpatient follow-up will cutter in for COPD stage/class and management Mental health consult pending Counseled for smoking cessation, refused nicotine patch Brief History: 58-year-old male with history of depression and suicidal attempts who is a resident at [place] that presents to [facility] ED with complaints of productive cough, SOB, and headache. D dimer elevated at 935.67, CT angiogram chest negative for PE. CTH did not show any evidence of hemorrhage, acute infarction or mass. On auscultation scattered wheezing throughout. He had a saturation of 90% on room air. He was placed on 3 L nasal cannula with improvement in saturation to 95%. Radiological data: EKG: image reviewed (sinus rhythm, 85 bpm) Chest x-ray: (IMPRESSION: COPD . no acute cardiopulmonary conditions), image reviewed CTA chest: IMPRESSION: No evidence of pulmonary embolism. No acute pulmonary process An intratracheal lesion may represent a polyp versus secretion. Endoscopic evaluation may be recommended. Cystic lesions are noted in the liver which appears to be of benign nature. Left adrenal adenoma CT head: IMPRESSION: No acute intracranial abnormality Chronic sinusitis. Hospitalist Physical exam: GENERAL: well-developed and well-nourished WM lying on bed appeared to be in no discomfort. HEENT: Normocephalic. Atraumatic. No conjunctival congestion or icterus. Patient has moist mucous membranes. NECK: Supple. Trachea midline. CHEST/LUNGS: Clear to auscultated bilaterally, breathing nonlabored. No wheezes crackles or rhonchi. HEART/CARDIOVASCULAR: Regular in rate and rhythm. S1 and S2 positive. ABDOMEN: Abdomen is soft, nontender. Patient has normal bowel sounds. SKIN: There is no rash. Warm and dry. NEURO: No focal motor deficit. Follows command. MUSCULOSKELETAL: No joint effusion EXTRIMITY: No edema, no cyanosis or clubbing. PSYCH: Cooperative. Subjective Date of service: 01/22/19 Interval history: Patient seen and examined. Medical records and medication list reviewed. No acute event overnight noted by the RN. Patient denies any chest pain, complains of difficulty breathing with minimal exertion. Patient is tolerating diet. Discussed plan of care at bedside with patient. Objective - Constitutional Vitals: Vital Signs - 12hr 01/22/19 01/22/19 01/22/19 02:30 02:46 06:21 Temperature Pulse Rate Pulse Rate [ 88 93 H Posterior] Pulse Rate [ Throughout] Respiratory 17 Rate Respiratory 18 18 Rate [Posterior ] Respiratory Rate [ Throughout] Blood Pressure O2 Sat by Pulse Oximetry 01/22/19 01/22/19 01/22/19 06:37 08:00 09:37 Temperature 97.3 F L Pulse Rate 94 H Pulse Rate [ 89 Posterior] Pulse Rate [ 93 H Throughout] Respiratory 20 Rate Respiratory 18 Rate [Posterior ] Respiratory 18 Rate [ Throughout] Blood Pressure 125/60 O2 Sat by Pulse 95 96 Oximetry 01/22/19 01/22/19 01/22/19 10:00 12:12 13:37 Temperature 97.7 F Pulse Rate 94 H Pulse Rate [ 96 H Posterior] Pulse Rate [ 100 H Throughout] Respiratory 20 Rate Respiratory 18 Rate [Posterior ] Respiratory 18 Rate [ Throughout] Blood Pressure 114/60 O2 Sat by Pulse 93 92 Oximetry - Labs CBC & Chem 7: 01/22/19 08:12 01/22/19 08:12 Labs: Abnormal lab results 01/22/19 01/22/19 Range/Units 08:12 08:12 Seg Neuts % (Manual) 93.0 H (40.0-70.0) % Lymphocytes % (Manual) 2.0 L (13.4-35.0) % Seg Neutrophils # Man 8.4 H (1.8-7.7) K/mm3 Lymphocytes # (Manual) 0.2 L (1.2-5.4) K/mm3 Glucose 168 H (75-100) mg/dL
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
[2019-01-22] MEDS: ZOLOFT PO SCH (15:10)
[2019-01-22] MEDS: SODIUM CHLORIDE FLUSH SYRINGE 10 ML IV SCH (15:13)
[2019-01-23] MEDS: SODIUM CHLORIDE FLUSH SYRINGE 10 ML IV SCH ×3 (00:46→22:29)
[2019-01-23] MEDS: SOLU-Medrol IV SCH ×2 (00:47→06:13)
[2019-01-23] MEDS: COLACE PO SCH ×3 (00:47→22:28)
[2019-01-23] MEDS: MUCINEX ER PO SCH ×3 (00:47→22:28)
[2019-01-23] MEDS: DUONEB *Not for PRN Use IH SCH ×4 (03:39→21:24)
[2019-01-23] MEDS: PERCOCET 5/325 PO PRN (06:13)
[2019-01-23] MEDS: PULMICORT IH SCH ×2 (07:47→21:24)
--- NOTE | 2019-01-23 09:50 | Progress Note ---
Assessment and Plan Patient awake. Patient supposed to be on 2L O2. He is not using his O2. O2 Sat 93%. Still complaining some shortness of breath. Recommend to use O2 all the time. Patients todays chest xray reported changes of COPD. No acute changes. Patients ABGs done to day 01/23/10 on room air PH 7.43 PCO2 38, PO2 68 HCO3 27 O2 saturation 94%. - Patient Problems (1) SOB (shortness of breath) Current Visit: Yes Status: Acute Plan to address problem: O2 2 litres via nasal canula. Albuterol/atrovent aerosol treatments q 6 hours. Continue I/V solumedrol Continue Levaquin. Continue S/C Lovenox. Recommend GI prophylaxis. (2) COPD (chronic obstructive pulmonary disease) Current Visit: Yes Status: Acute Plan to address problem: Possible COPD with heavy history of smoking. O2 2 litres via nasal canula. Albuterol/atrovent aerosol treatments q 6 hours. Continue I/V solumedrol Continue Levaquin. Continue S/C Lovenox. Recommend GI prophylaxis. PFTs as out patient. (3) Headache Current Visit: Yes Status: Acute Qualifiers: Headache type: unspecified Headache chronicity pattern: acute headache In tractability: intractable Qualified Code(s): R51 - Headache Plan to address problem: Management as per primary care. Patient is on Percocet. (4) Hypoxia Current Visit: Yes Status: Acute Plan to address problem: O2 supplementation 2 litres. (5) Multiple tracheobronchial mucus plugs Current Visit: Yes Status: Acute Plan to address problem: Could be mucus plug described in trachea. Repeating CAT scan of neck , special attention to trachea. Subjective Date of service: 01/23/19 Interval history: Patient awake. Patient supposed to be on 2L O2. He is not using his O2. O2 Sat 93%. Still complaining some shortness of breath. Recommend to use O2 all the time. Patients todays chest xray reported changes of COPD. No acute changes. Patients ABGs done to day 01/23/10 on room air PH 7.43 PCO2 38, PO2 68 HCO3 27 O2 saturation 94%. Objective Vital Signs - 12hr 01/22/19 01/23/19 01/23/19 23:23 05:48 07:47 Temperature 97.6 F 97.8 F Pulse Rate 96 H 84 Pulse Rate [ 92 H Posterior] Pulse Rate [ 87 Throughout] Respiratory 20 20 Rate Respiratory 19 Rate [Posterior ] Respiratory 18 Rate [ Throughout] Blood Pressure 111/54 109/48 O2 Sat by Pulse 93 94 Oximetry 01/23/19 08:45 Temperature Pulse Rate Pulse Rate [ Posterior] Pulse Rate [ Throughout] Respiratory Rate Respiratory Rate [Posterior ] Respiratory Rate [ Throughout] Blood Pressure O2 Sat by Pulse 94 Oximetry Constitutional: no acute distress, alert Eyes: non-icteric ENT: oropharynx moist Neck: supple, no JVD Ascultation: Bilateral: diminished breath sounds, other (Prolonged expiratory phase.) Cardiovascular: regular rate and rhythm Gastrointestinal: normoactive bowel sounds, soft, non-tender Integumentary: normal Extremities: no cyanosis, no edema Neurologic: non-focal exam, pupils equal and round, CN II-XII normal Psychiatric: depressed CBC and BMP: 01/22/19 08:12 01/22/19 08:12 ABG, PT/INR, D-dimer: PT/INR, D-dimer 935.67 ng/mlDDU (0-234) H 01/20/19 20:56 Abnormal lab findings: Abnormal Labs 01/20/19 01/20/19 01/20/19 20:56 20:56 20:56 WBC 3.5 L MCHC 35 H [place] % (Auto) 9.4 H Lymph # 0.8 L Seg Neuts % (Manual) Lymphocytes % (Manual) Seg Neutrophils # Man Lymphocytes # (Manual) D-Dimer 935.67 H Glucose 130 H 01/22/19 01/22/19 08:12 08:12 WBC MCHC [place] % (Auto) Lymph # Seg Neuts % (Manual) 93.0 H Lymphocytes % (Manual) 2.0 L Seg Neutrophils # Man 8.4 H Lymphocytes # (Manual) 0.2 L D-Dimer Glucose 168 H Chest x-ray: report reviewed (Changes of COPD,No acute cardiopulmonary process.), image reviewed
[2019-01-23] MEDS: ZOLOFT PO SCH (10:02)
[2019-01-23] MEDS: XANAX PO PRN ×2 (10:02→22:28)
[2019-01-23] MEDS: LEVAQUIN 500MG/100ML 500 MG/100 ML BAG IV SCH (10:03)
[2019-01-23] MEDS: LOVENOX SUB-Q SCH (10:03)
[2019-01-23] MEDS ORDERED: FIORICET PO PRN (12:08)
--- NOTE | 2019-01-23 14:00 | Progress Note ---
Subjective - Reason for Consult Consult date: 01/23/19 Reason for consult: Psychiatric Follow-up Evaluation - Chief Complaint Chief complaint: " I'm feeling a lot better than this morning" Patient is a 58-year-old white male who presented to the ER for SOB from [facility]. Psychiatry was consulted to see the patient for medication management. Today the patient was calm and cooperative during the assessment. He stated that he attempted to kill himself by overdosing on cocaine prior to his hospitalization at [facility]. Today the patient is calm and cooperative during the assessment. He verbalizes " I have a lot to live for." He reports appropriate appetite and sleep, however he endorses decrease sleep. He denies SI/HI's, A/VH's, and delusions. Patient reports medication compliance. No side effects noted/reported. Mental Status Exam - Vital signs Last Vital Signs Temp 97.4 F L 01/23/19 11:40 Pulse 85 01/23/19 11:40 Resp 24 01/23/19 11:40 BP 112/59 01/23/19 11:40 Pulse Ox 93 01/23/19 11:40 - Exam Narrative exam: Mental Status Exam: Appearance: calm, cooperative Behavior: regular eye contact Speech: regular rate and tone Mood: "a lot better today" ; depressed/anxious-less Affect: congruent to mood Thought Process: logical Thought Content: denies SI/HI's and AVH's Motor Activity: sitting up in the bed Cognition: A/O x 3 Insight: fair Judgment: fair Assessment and Plan Impression: MDD. Cannabis Use DO. Today the patient is calm and cooperative during the assessment. He denies SI/HI's, A/VH's, and delusions. Recommendation/Plan: 1. Continue Zoloft 50 mg PO daily for depression. Discussed possible suicidality/medication induced pradeep with the patient reference Zoloft, he verbalized understanding. 2. Trazodone 50mg po QHS PRN insomnia. Discussed possible side effects. Patient verbalizes understanding. Disposition: The patient will be given outpatient referral for his local area prior to his discharge. Will staff with Dr Yael Mccollum.
--- NOTE | 2019-01-23 14:46 | XRay Report ---
CHEST XRAY, 2 VIEWS: History: Tracheal secretion. Findings: There is mild diffuse interstitial coarsening. The lungs are hyperexpanded but clear. No infiltrate, pleural fluid or pneumothorax is detected. The cardiac silhouette and pulmonary vasculature are within normal limits for technique. The bony thorax is unremarkable. IMPRESSION: Changes consistent with COPD. No acute cardiopulmonary process. No significant change since 01/20/18.
--- NOTE | 2019-01-23 15:21 | Progress Note ---
Assessment and Plan Acute hypoxic respiratory failure, Due to COPD exacerbation COPD-with acute exacerbation Acute Bronchitis - Continue supportive care - cont Scheduled DuoNebs and Pulmicort, albuterol when necessary, Mucinex - Solu-Medrol 40 mg every 8 hours, thomas as clinically symptom improves - Levaquin 500 milligrams every 24 hours - Monitor oxygen saturation and Continue supplemental oxygen and wean as tolerated - May benefit from outpatient follow-up will career development coordinator for COPD stage/class and management - We will assess for home O2 requirement Acute Headache, likely tension - fioricet as needed, CT head no acute process Hypertension, stable - IV hydralazine when necessary to keep SBP <160 Depression with Suicidal attempts, not on 1013 today - Mental health consulted and place on Zoloft 50 mg PO daily for depression and Trazodone 50 mg PO HS for sleep Tobacco abuse, Counseled for smoking cessation, refused nicotine patch Brief History: 58-year-old male with history of depression and suicidal attempts who is a resident at [facility] that presents to [facility] ED with complaints of productive cough, SOB, and headache. D dimer elevated at 935.67, CT angiogram chest negative for PE. CTH did not show any evidence of hemorrhage, acute infarction or mass. On auscultation scattered wheezing throughout. He had a saturation of 90% on room air. He was placed on 3 L nasal cannula with improvement in satu ration to 95%. Radiological data: EKG: image reviewed (sinus rhythm, 85 bpm) Chest x-ray: (IMPRESSION: COPD . no acute cardiopulmonary conditions), image reviewed CTA chest: No evidence of pulmonary embolism. No acute pulmonary process. An intratracheal lesion may represent a polyp versus secretion. Endoscopic evaluation may be recommended. Cystic lesions are noted in the liver which appears to be of benign nature. Left adrenal adenoma CT head: IMPRESSION: No acute intracranial abnormality Chronic sinusitis. Hospitalist Physical exam: GENERAL: well-developed and well-nourished WM lying on bed appeared to be in no discomfort. HEENT: Normocephalic. Atraumatic. No conjunctival congestion or icterus. Patient has moist mucous membranes. NECK: Supple. Trachea midline. CHEST/LUNGS: Clear to auscultated bilaterally, breathing nonlabored. No wheezes crackles or rhonchi. HEART/CARDIOVASCULAR: Regular in rate and rhythm. S1 and S2 positive. ABDOMEN: Abdomen is soft, nontender. Patient has normal bowel sounds. SKIN: There is no rash. Warm and dry. NEURO: No focal motor deficit. Follows command. MUSCULOSKELETAL: No joint effusion EXTRIMITY: No edema, no cyanosis or clubbing. PSYCH: Cooperative. Subjective Date of service: 01/23/19 Interval history: Patient seen and examined. Medical records and medication list reviewed. No acute event overnight noted by the RN. Patient denies any chest pain, breathing much improved. Patient is tolerating d iet. c/o severe headache Discussed plan of care at bedside with patient. Objective - Constitutional Vitals: Vital Signs - 12hr 01/23/19 01/23/19 01/23/19 05:48 07:47 08:45 Temperature 97.8 F Pulse Rate 84 Pulse Rate [ 92 H Posterior] Pulse Rate [ 87 Throughout] Respiratory 20 Rate Respiratory 19 Rate [Posterior ] Respiratory 18 Rate [ Throughout] Blood Pressure 109/48 O2 Sat by Pulse 94 94 Oximetry 01/23/19 01/23/19 11:40 13:22 Temperature 97.4 F L Pulse Rate 85 Pulse Rate [ 90 Posterior] Pulse Rate [ 88 Throughout] Respiratory 24 Rate Respiratory 20 Rate [Posterior ] Respiratory 19 Rate [ Throughout] Blood Pressure 112/59 O2 Sat by Pulse 93 Oximetry - Labs CBC & Chem 7: 01/22/19 08:12 01/22/19 08:12 Labs: Abnormal lab results 01/23/19 Range/Units 10:25 POC ABG pO2 68 L (80-105)
[2019-01-23] MEDS ORDERED: DESYREL PO PRN (17:04)
[2019-01-23] MEDS ORDERED: SOLU-Medrol IV SCH (18:00)
[2019-01-24] MEDS: PULMICORT IH SCH (07:35)
[2019-01-24] MEDS: DUONEB *Not for PRN Use IH SCH ×2 (07:36→13:43)
[2019-01-24] MEDS: ZOLOFT PO SCH (09:37)
[2019-01-24] MEDS: MUCINEX ER PO SCH (09:37)
[2019-01-24] MEDS: COLACE PO SCH (09:37)
[2019-01-24] MEDS: LOVENOX SUB-Q SCH (09:37)
[2019-01-24] MEDS: SODIUM CHLORIDE FLUSH SYRINGE 10 ML IV SCH (09:38)
[2019-01-24] MEDS ORDERED: SOLU-Medrol IV SCH (10:00)
[2019-01-24] MEDS ORDERED: LEVAQUIN PO SCH (10:00)
[2019-01-24 12:41] VITALS: BP 118/65
--- NOTE | 2019-01-24 13:03 | Progress Note ---
Subjective - Reason for Consult Consult date: 01/24/19 Reason for consult: Psychiatry Follow-up - Chief Complaint Chief complaint: "I'm doing well" 58-year-old white male who presented to the ER for SOB from [facility]. Psychiatry was consulted to see the patient for medication management. Today the patient was calm and cooperative during the assessment. He stated that he slept well last night for the first times in weeks. He stated that he would like a referral for outpatient psy services in the [place], [place] local area. He denies SI/HI's and AVH's. He denies any side effects of his medications. The patient denies being anxious and does not want to any benzos. Mental Status Exam - Vital signs Last Vital Signs Temp 97.3 F L 01/24/19 11:34 Pulse 80 01/24/19 11:34 Resp 20 01/24/19 11:34 BP 118/65 01/24/19 11:34 Pulse Ox 93 01/24/19 11:34 - Exam Narrative exam: MSE: Appearance: calm, cooperative Behavior: regular eye contact Speech: regular rate and tone Mood: "much better" Affect: congruent to mood Thought Process: logical Thought Content: denies SI/HI's and AVH's Motor Activity: sitting up in the bed Cognition: A/O x 3 Insight: appropriate Judgment: appropriate Assessment and Plan Impression: MDD. Cannabis Use DO. Today the patient was calm and cooperative during the assessment. The patient is no threat to self. Recommendation/Plan: Continue Zoloft 50 mg PO daily for depression Trazodone 50 mg PO HS for sleep. Discussed possible suicidality/medication induced pradeep with the patient reference antidepressants, he verbalized understanding. Psy sign off. Dispo: The patient will be given a referral for outpatient psy services in his local area. Will staff with Dr Yael Mccollum.
--- NOTE | 2019-01-24 14:31 | Progress Note ---
Assessment and Plan Acute Hypoxemic Resp Failure SOB (shortness of breath) Acute COPD exacerbation Headache Elevated D-dimer - continue supplemental oxygen and wean to keep sat's > 90% - continue bronchodilators with pulmonary hygiene per RT - continue systemic steropids with slow taper - continue empiric AB's therapy - prn analgesia - continue other care per attending / other consultants ... re-evaluate in am & prn Subjective Date of service: 01/24/19 Principal diagnosis: Ac. Hypoxemic Resp Failure; AE-COPD; Headache; Elevated D- dimer Interval history: Patient is seen today for: Acute Hypoxemic Resp Failure; SOB (shortness of breath); Acute COPD exacerbation; Headache; Elevated D-dimer Seen and examined at bedside; 24hour events reviewed; nursing and respiratory care staff consulted; no adverse overnight events reported to me; resting peacefully in bed; looks and feels better; No N/V/F/C Objective Vital Signs - 12hr 01/24/19 01/24/19 01/24/19 06:04 07:35 08:59 Temperature 97.8 F Pulse Rate 72 Pulse Rate [ 91 H Posterior] Pulse Rate [ 70 Throughout] Respiratory 20 Rate Respiratory 20 Rate [Posterior ] Respiratory 19 Rate [ Throughout] Blood Pressure 94/38 O2 Sat by Pulse 94 96 Oximetry 01/24/19 11:34 Temperature 97.3 F L Pulse Rate 80 Pulse Rate [ Posterior] Pulse Rate [ Throughout] Respiratory 20 Rate Respiratory Rate [Posterior ] Respiratory Rate [ Throughout] Blood Pressure 118/65 O2 Sat by Pulse 93 Oximetry Constitutional: no acute distress, alert Eyes: non-icteric ENT: oropharynx moist Neck: supple, no JVD Ascultation: Bilateral: diminished breath sounds, other (Prolonged expiratory phase.) Percussion: Bilateral: not dull Cardiovascular: regular rate and rhythm Gastrointestinal: normoactive bowel sounds, soft, non-tender, non-distended Integumentary: normal Extremities: no cyanosis, no edema, pulses normal, no ischemia or petechiae Neurologic: non-focal exam, pupils equal and round, CN II-XII normal, motor st rength normal and Psychiatric: mood appropriate, affect normal CBC and BMP: 01/22/19 08:12 01/22/19 08:12 ABG, PT/INR, D-dimer: ABG POC ABG pH 7.435 (7.35-7.45) 01/23/19 10:25 POC ABG pCO2 38.0 (35-45) 01/23/19 10:25 POC ABG pO2 68 (80-105) L 01/23/19 10:25 POC ABG HCO3 25.5 (22-26 mml/L) 01/23/19 10:25 POC ABG Total CO2 27 (23-27mmol/L) 01/23/19 10:25 POC ABG O2 Sat 94 01/23/19 10:25 PT/INR, D-dimer 935.67 ng/mlDDU (0-234) H 01/20/19 20:56 Abnormal lab findings: Abnormal Labs 01/20/19 01/20/19 01/20/19 20:56 20:56 20:56 WBC 3.5 L MCHC 35 H [place] % (Auto) 9.4 H Lymph # 0.8 L Seg Neuts % (Manual) Lymphocytes % (Manual) Seg Neutrophils # Man Lymphocytes # (Manual) D-Dimer 935.67 H POC ABG pO2 Glucose 130 H 01/22/19 01/22/19 01/23/19 08:12 08:12 10:25 WBC MCHC [place] % (Auto) Lymph # Seg Neuts % (Manual) 93.0 H Lymphocytes % (Manual) 2.0 L Seg Neutrophils # Man 8.4 H Lymphocytes # (Manual) 0.2 L D-Dimer POC ABG pO2 68 L Glucose 168 H Allied health notes reviewed: nursing
--- NOTE | 2019-01-24 15:56 | Discharge Summary ---
Providers - Providers Date of Admission: 01/22/19 07:28 Date of discharge: 01/24/19 Attending physician: SHAMAR GALEANO 01/21/19 13:55 Consult to Physician [CONS] Routine Comment: Consulting Provider: GINNA PALMA Physician Instructions: Reason For Exam: copd 01/21/19 13:59 Consult to Mental Health [CONS] Routine Reason For Exam: behavioral disturbance Place consult to:: [facility] Notified:: Phone number called:: [phone] Was contact made?: No Time called:: 15:16 [facility] Condition: Stable Hospital course: 58-year-old male with history of depression and a recent suicidal attempts who is a resident at [facility] that presents to [facility] ED with complaints of productive cough, SOB, and headache. D dimer elevated at 935.67, CT angiogram chest negative for PE. CTH did not show any evidence of hemorrhage, acute infarction or mass. On auscultation scattered wheezing throughout. He had a saturation of 90% on room air. He was placed on 3 L nasal cannula with improvement in saturation to 95%. Admitted for further evaluation and management. Radiological data: EKG: image reviewed (sinus rhythm, 85 bpm) Chest x-ray: (IMPRESSION: COPD . no acute cardiopulmonary conditions), image reviewed CTA chest: No evidence of pulmonary embolism. No acute pulmonary process. An intratracheal lesion may represent a polyp versus secretion. Endoscopic evaluation may be recommended. Cystic lesions are noted in the liver which appears to be of benign nature. Left adrenal adenoma CT head: IMPRESSION: No acute intracranial abnormality Chronic sinusitis. Discharge diagnosis and management: Acute hypoxic respiratory failure, Due to COPD exacerbation COPD-with acute exacerbation Acute Bronchitis - placed on Scheduled DuoNebs and Pulmicort, albuterol when necessary, Mucinex, Levaquin 500 milligrams every 24 hours - Solu-Medrol 40 mg every 8 hours, tapered as clinically symptom improves - Monitored oxygen saturation, Continued supplemental oxygen and wean as tolerated - Will benefit from outpatient follow-up will level vial setter for COPD stage/class and management - Assessed for home O2 requirement and he did not require any Acute Headache, likely tension - fioricet as needed, CT head no acute process Hypertension, stable - IV hydralazine when necessary to keep SBP <160 Depression with Suicidal attempts, initially placed on 1013 - Mental health consulted and place on Zoloft 50 mg PO daily for depression and Trazodone 50 mg PO HS for sleep - patient will do further outpt followup Tobacco abuse, Counseled for smoking cessation, refused nicotine patch Hospitalist Physical exam: GENERAL: well-developed and well-nourished WM lying on bed appeared to be in no discomfort. HEENT: Normocephalic. Atraumatic. No conjunctival congestion or icterus. Patient has moist mucous membranes. NECK: Supple. Trachea midline. CHEST/LUNGS: Clear to auscultated bilaterally, breathing nonlabored. No wheezes crackles or rhonchi. HEART/CARDIOVASCULAR: Regular in rate and rhythm. S1 and S2 positive. ABDOMEN: Abdomen is soft, nontender. Patient has normal bowel sounds. SKIN: There is no rash. Warm and dry. NEURO: No focal motor deficit. Follows command. MUSCULOSKELETAL: No joint effusion EXTRIMITY: No edema, no cyanosis or clubbing. PSYCH: Cooperative. Disposition: - TO HOME OR SELFCARE Time spent for discharge: 34 minutes Core Measure Documentation - Palliative Care Palliative Care/ Comfort Measures: Not Applicable - Core Measures Any of the following diagnoses?: none Exam - Constitutional Vitals: Temp Pulse Resp BP Pulse Ox 97.3 F L 80 20 118/65 93 01/24/19 11:34 01/24/19 11:34 01/24/19 11:34 01/24/19 11:34 01/24/19 11:34 Plan Activity: advance as tolerated Weight Bearing Status: Weight Bear as Tolerated Diet: low fat, low salt Special Instructions: smoking cessation Follow up with: VITA BURNETTE MD [Primary Care Provider] - 3-5 Days Prescriptions: traZODone [Desyrel] 50 mg PO QHS PRN #7 tablet PRN Reason: Insomnia Butalb/Acetamin/Caff 50-325-40 [Fioricet 50-325-40] 1 tab PO Q4H PRN #7 tablet PRN Reason: Headache Prednisone [predniSONE 5 mg (6-Day Pack, 21 Tabs)] 5 mg PO .TAPER #1 tab.ds.pk ALBUTEROL Inhaler (OR & NICU) [ProAir HFA Inhaler] 2 puff IH QID PRN 30 Days #1 vial PRN Reason: Shortness Of Breath Budesonide/Formoterol Fumarate [Symbicort 80-4.5 Mcg Inhaler] 10.2 gm IH BID 30 Days #1 vial Sertraline [Zoloft] 50 mg PO QDAY #7 tablet
== END 2019-01-24 16:12 | disposition home or self-care (01) | DRG 189 ==
LOC: ED 20:19 → 3A 01-21 00:45 → INTOOBSV 01-21 00:45 → 3A 01-21 01:28 → OBSVTOIN 01-22 07:28 → INTOOBSV 01-22 10:25 → OBSVTOIN 01-22 10:25
PROVIDERS: ADMIT Internal Medicine; ATTEND Internal Medicine
DX: J96.21 Acute and chronic respiratory failure with hypoxia (principal); J44.1 Chronic obstructive pulmonary disease with (acute) exacerbation; T17.590A Other foreign object in bronchus causing asphyxiation, initial encounter; J20.9 Acute bronchitis, unspecified; F17.210 Nicotine dependence, cigarettes, uncomplicated; F32.9 Major depressive disorder, single episode, unspecified; R55 Syncope and collapse; R51 Headache; T14.91XA Suicide attempt, initial encounter; F12.20 Cannabis dependence, uncomplicated; X58.XXXA Exposure to other specified factors, initial encounter; Y93.9 Activity, unspecified; Y92.89 Other specified places as the place of occurrence of the external cause; Y99.8 Other external cause status; G89.29 Other chronic pain
CPT/HCPCS: 36415; 70450; 71046; 71275; 80048; 80307; 81001; 82803; 83735; 84100; 84484; 85007; 85025; 85379; 85652; 87116; 93005; 93010; 94640; 94760; 96374; 96375; 99406; G0378; J1170; J1650; J1956; J2405; J2920; J2930; Q9967